=== PATIENT | male | born 1960 | race Caucasian/White ===

== ENCOUNTER 2017-08-28 21:29 | Emergency (ER) | payer MEDICAID ==
[~2017-08-28] VITALS: Ht 152.4 cm; Wt 64.9 kg
[~2017-08-28 21:29] MED LIST: CAC650 PO; CLINDAMYCIN300 M1 PO; ECO81 PO; GLIPIZIDE10 MG PO; INSULIN; LAC PO; LANTUS SOLOS100 U/M1 SQ; LOT10 PO; METFORMIN ER500 M1 PO; NAP375 PO; NEURONTIN100 MG PO; ZOCOR10 MG PO
[2017-08-28 22:15] VITALS: Ht 152.4 cm; Wt 64.9 kg
[2017-08-28 23:57] VITALS: BP 135/68
== END 2017-08-28 23:57 | disposition home or self-care (01) ==
LOC: ED 21:29
DX: T15.02XA Foreign body in cornea, left eye, initial encounter (principal); I10 Essential (primary) hypertension; E11.9 Type 2 diabetes mellitus without complications; E78.00 Pure hypercholesterolemia, unspecified; X58.XXXA Exposure to other specified factors, initial encounter; Y93.89 Activity, other specified; Y92.89 Other specified places as the place of occurrence of the external cause; Y99.8 Other external cause status

== ENCOUNTER 2017-10-23 11:53 | Inpatient (IN) | payer SELFPAY ==
[~2017-10-23] VITALS: Ht 165.1 cm; Wt 69.8 kg
[2017-10-23 12:08] VITALS: Ht 165.1 cm; Wt 69.8 kg
[2017-10-23 12:52] LABS: BASOPHIL % 0.6 % (0-2); PLATELET COUNT 205 x10^3mcL (130-400); RED CELL DISTRIBUTION WIDTH 12.7 % (11.5-14.5)
[2017-10-23 13:14] LABS: CALCIUM 8.7 mg/dL (8.5-10.1); CARBON DIOXIDE 28.6 mmol/L (21-32); CHLORIDE SERUM 103 mmol/L (98-107); GFR1 > 60 mL/min; GLUCOSE SERUM 351 mg/dL (74-106); POTASSIUM SERUM 4.4 mmol/L (3.5-5.1); SODIUM SERUM 138 mmol/L (136-145)
[2017-10-23 13:25] LABS: ALBUMIN 3.8 g/dL (3.4-5.0); ALKALINE PHOSPHATASE 87 U/L (46-116); ALT/SGPT 24 U/L (16-63); AMYLASE 46 U/L (25-115); AST/SGOT 18 U/L (15-37); BILIRUBIN TOTAL 0.27 mg/dL (0.20-1.00); LIPASE 282 IU/L (73-393); T4(THYROXINE) 5.8 ug/dL (4.7-13.3); TOTAL PROTEIN, SERUM 6.6 g/dL (6.4-8.2)
[2017-10-23 13:26] LABS: CHOLESTEROL 132 mg/dL (<200); HDL CHOLESTEROL 65 mg/dL (40-60)
[2017-10-23] MEDS ORDERED: LANTI SQ (14:50)
[2017-10-23] MEDS ORDERED: MASON NATURAL1000 IU PO (14:50)
[2017-10-23 15:21] LABS: microscopic required? NO
[2017-10-23 15:34] LABS: urine erythrocyte NEGATIVE (NEGATIVE)
[2017-10-23 15:42] LABS: AMPHETAMINE QUAL UR NONE DETECTED (See below)
[2017-10-23 16:13] LABS: T3 TOTAL 0.98 ng/mL
[2017-10-23 16:16] LABS: FREE T4 0.94 ng/dL (0.76-1.46); T4(THYROXINE) 6.4 ug/dL (4.7-13.3)
[2017-10-23 16:17] VITALS: BP 109/47
[2017-10-23 16:43] LABS: MAGNESIUM 2.1 mg/dL (1.8-2.4); PHOSPHOROUS 4.3 mg/dL (2.5-4.9)
[2017-10-23 16:44] LABS: CHOLESTEROL/HDL RATIO 2.1
[2017-10-23 20:54] VITALS: BP 133/63
[2017-10-24 05:30] VITALS: BP 131/59
[2017-10-24 06:08] LABS: CALCIUM 7.8 mg/dL (8.5-10.1); CARBON DIOXIDE 25.7 mmol/L (21-32); CHLORIDE SERUM 106 mmol/L (98-107); CREATININE SERUM 0.6 mg/dL (0.7-1.3); GFR1 > 60 mL/min; GLUCOSE SERUM 187 mg/dL (74-106); POTASSIUM SERUM 3.9 mmol/L (3.5-5.1); SODIUM SERUM 140 mmol/L (136-145)
[2017-10-24 06:21] LABS: BASOPHIL % 0.3 % (0-2); PLATELET COUNT 181 x10^3mcL (130-400); RED CELL DISTRIBUTION WIDTH 12.4 % (11.5-14.5)
[2017-10-24 10:07] VITALS: BP 129/52
[2017-10-24 13:16] VITALS: BP 127/67
[2017-10-24 16:19] VITALS: BP 127/67
== END 2017-10-24 17:19 | disposition home or self-care (01) | DRG 205 ==
LOC: ED 11:53 → DU 14:47
PROVIDERS: Emergency Medicine; Family Medicine
DX: M94.0 Chondrocostal junction syndrome [Tietze] (principal); N17.0 Acute kidney failure with tubular necrosis; E87.1 Hypo-osmolality and hyponatremia; I10 Essential (primary) hypertension; E11.40 Type 2 diabetes mellitus with diabetic neuropathy, unspecified; E78.00 Pure hypercholesterolemia, unspecified; M25.512 Pain in left shoulder; Z53.29 Procedure and treatment not carried out because of patient's decision for other reasons; E11.65 Type 2 diabetes mellitus with hyperglycemia; Z79.82 Long term (current) use of aspirin; Z79.899 Other long term (current) drug therapy; Z83.3 Family history of diabetes mellitus; Z72.89 Other problems related to lifestyle
CPT/HCPCS: 82962; 83880; 84439; G0480; J1815; J7030; J7040; Q0092

== ENCOUNTER 2017-11-04 17:47 | Emergency (ER) | payer MEDICAID ==
[~2017-11-04] VITALS: Ht 167.6 cm; Wt 65.3 kg
[~2017-11-04 17:47] MED LIST changes: +LANTI SQ; +MASON NATURAL1000 IU PO
[2017-11-04 17:52] VITALS: Ht 167.6 cm; Wt 65.3 kg
[2017-11-04 19:47] VITALS: BP 133/88
== END 2017-11-04 19:47 | disposition home or self-care (01) ==
LOC: ED 17:47
DX: S01.81XA Laceration without foreign body of other part of head, initial encounter (principal); I10 Essential (primary) hypertension; E11.9 Type 2 diabetes mellitus without complications; E78.00 Pure hypercholesterolemia, unspecified; W26.8XXA Contact with other sharp object(s), not elsewhere classified, initial encounter; Y93.89 Activity, other specified; Y92.89 Other specified places as the place of occurrence of the external cause; Y99.8 Other external cause status
CPT/HCPCS: J2001